=== PATIENT | male | born 1995 | race Caucasian/White ===

== ENCOUNTER 2017-12-15 08:26 | Emergency (ER) | payer OTHER ==
[2017-12-15 08:38] VITALS: BP 156/84; PULSE 71; TEMP 99.1; BMI 30.5
--- NOTE | 2017-12-15 08:39 | PDOC ---
History of Present Illness - General Chief Complaint: Urinary Problem Stated Complaint: PAIN Time Seen by Provider: 12/15/17 08:37 History Source: Patient Exam Limitations: No Limitations Past History - Travel Traveled outside of the country in the last 30 days: No Close contact w/someone who was outside of country & ill: No - Past Medical History Allergies/Adverse Reactions: Allergies Allergy/AdvReac Type Severity Reaction Status Date / Time No Known Allergies Allergy Verified 12/15/17 08:33 Home Medications: Ambulatory Orders NK [No Known Home Medication] 12/15/17 COPD: No - Immunization History Immunization Up to Date: Yes - Suicide/Smoking/Psychosocial Hx Smoking Status: No Smoking History: Never smoked Have you smoked in the past 12 months: No Number of Cigarettes Smoked Daily: 0 Cigars Per Day: 0 Information on smoking cessation initiated: No Hx Alcohol Use: No Drug/Substance Use Hx: No Substance Use Type: Alcohol Review of Systems - Review of Systems Able to Perform ROS?: Yes Comments:: 12/15/17 08:38 CONSTITUTIONAL: Absent: fever, chills, diaphoresis, generalized weakness, malaise, loss of appetite HEENT: Absent: rhinorrhea, nasal congestion, throat pain, throat swelling, difficulty swallowing, mouth swelling, ear pain, eye pain, visual Changes CARDIOVASCULAR: Absent: chest pain, loss of consciousness, palpitations, irregular heart rate, peripheral edema RESPIRATORY: Absent: cough, shortness of breath, dyspnea with exertion, orthopnea, wheezing, stridor, hemoptysis GASTROINTESTINAL: Absent: abdominal pain, abdominal distension, nausea, vomiting, diarrhea, constipation, melena, hematochezia GENITOURINARY: Absent: dysuria, frequency, urgency, hesitancy, hematuria, flank pain, genital pain MUSCULOSKELETAL: Absent: myalgia, arthralgia, joint swelling SKIN: Absent: rash, itching, pallor HEMATOLOGIC/IMMUNOLOGIC: Absent: easy bleeding, easy bruising, lymphadenopathy, frequent infections ENDOCRINE: Absent: unexplained weight gain, unexplained weight loss, heat intolerance, cold intolerance NEUROLOGIC: Absent: headache, focal weakness or paresthesias, dizziness, unsteady gait, seizure, mental status changes, bladder or bowel incontinence PSYCHIATRIC: Absent: anxiety, depression, suicidal or homicidal ideation, hallucinations. Is the patient limited Lithuanian proficient: No *Physical Exam - Vital Signs Last Vital Signs Temp Pulse Resp BP Pulse Ox 99.1 F 71 18 156/84 97 12/15/17 08:34 12/15/17 08:34 12/15/17 08:34 12/15/17 08:34 12/15/17 08:34 - Physical Exam Comments: 12/15/17 08:38 GENERAL: Well developed, well nourished. Awake and alert. No acute distress. HEENT: Normocephalic, atraumatic. PERRLA, EOMI. No conjunctival pallor. Sclera are non- icteric. Moist mucous membranes. Oropharynx is clear. NECK: Supple. Full ROM. No JVD. Carotid pulses 2+ and symmetric, without bruits. No thyromegaly. No lymphadenopathy. CARDIOVASCULAR: Regular rate and rhythm. No murmurs, rubs, or gallops. Distal pulses are 2+ and symmetric. PULMONARY: No evidence of respiratory distress. Lungs clear to auscultation bilaterally. No wheezing, rales or rhonchi. ABDOMINAL: Soft. Non-tender. Non-distended. No rebound or guarding. No organomegaly. Normoactive bowel sounds. MUSCULOSKELETAL Normal range of motion at all joints. No bony deformities or tenderness. No CVA tenderness. EXTREMITIES: No cyanosis. No clubbing. No edema. No calf tenderness. SKIN: Warm and dry. Normal capillary refill. No rashes. No jaundice. NEUROLOGICAL: Alert, awake, appropriate. Cranial nerves 2-12 intact. No deficits to light touch and temperature in face, upper extremities and lower extremities. No motor deficits in the in face, upper extremities and lower extremities. Normoreflexic in the upper and lower extremities. Normal speech. Toes are down- going bilaterally. Gait is normal without ataxia. PSYCHIATRIC: Cooperative. Good eye contact. Appropriate mood and affect. *DC/Admit/Observation/Transfer Diagnosis at time of Disposition: Exposure to STD - Discharge Dispostion Disposition: HOME Condition at time of disposition: Stable Decision to Admit order: No - Referrals Referrals: Ekta Lehman MD [Primary Care Provider] - - Patient Instructions Printed Discharge Instructions: Facts About Sexually Transmitted Infections Additional Instructions: Your urine and ultrasound were negative for infection today. You were treated prophylactically for gonorrhea and Chlamydia. You may receive the results of that testing next week. Please f/u with your primary care doctor this week. Return to emergency department if you have worsening pain, fevers, chills, or if you have any changes in her symptoms. - Post Discharge Activity
[2017-12-15 09:13] LABS: URINE APPEARANCE CLEAR; URINE BILIRUBIN NEGATIVE (<2.0 mg/dL); URINE COLOR YELLOW; URINE GLUCOSE (UA) NEGATIVE (NEGATIVE); URINE KETONE NEGATIVE (NEGATIVE); URINE LEUK ESTERASE NEGATIVE (NEGATIVE); URINE NITRITE NEGATIVE (NEGATIVE); URINE PROTEIN NEGATIVE (NEGATIVE); URINE UROBILINOGEN NEGATIVE mg/dL (0.2-1.0)
[2017-12-15] MEDS ORDERED: AZITHROMYCIN 500 MG TABLET PO ONE (09:15)
[2017-12-15] MEDS ORDERED: LIDOCAINE HCL/PF 1% SDV 5ML VIAL ONE (10:03)
[2017-12-15] MEDS ORDERED: AZITHROMYCIN 500 MG TABLET ONE (10:03)
== END 2017-12-15 11:07 | disposition home or self-care (01) ==
LOC: JER 08:26 → JERFT 08:26
DX: Z20.2 Contact with and (suspected) exposure to infections with a predominantly sexual mode of transmission (principal)
CPT/HCPCS: 36415; 76870-TC; 81003; 87086; 87491; 87591; 96372; 99281-25

== ENCOUNTER 2018-02-03 19:38 | Emergency (ER) | payer OTHER ==
[2018-02-03 19:55] VITALS: BP 129/72; PULSE 71; TEMP 98.5; BMI 29.4
[2018-02-03 20:30] LABS: URINE APPEARANCE CLEAR; URINE BILIRUBIN NEGATIVE (<2.0 mg/dL); URINE COLOR YELLOW; URINE GLUCOSE (UA) NEGATIVE (NEGATIVE); URINE KETONE TRACE (NEGATIVE); URINE LEUK ESTERASE 1+ (NEGATIVE); URINE NITRITE NEGATIVE (NEGATIVE); URINE PROTEIN NEGATIVE (NEGATIVE)
--- NOTE | 2018-02-03 20:32 | PDOC ---
History of Present Illness - General Chief Complaint: Urinary Problem Stated Complaint: URINARY PROBLEM Time Seen by Provider: 02/03/18 19:57 History Source: Patient - History of Present Illness Timing/Duration: reports: other Quality: reports: mild Past History - Past Medical History Allergies/Adverse Reactions: Allergies Allergy/AdvReac Type Severity Reaction Status Date / Time No Known Allergies Allergy Verified 02/03/18 19:52 Home Medications: Ambulatory Orders NK [No Known Home Medication] 12/15/17 COPD: No - Immunization History Immunization Up to Date: Yes - Suicide/Smoking/Psychosocial Hx Smoking Status: No Smoking History: Never smoked Have you smoked in the past 12 months: No Number of Cigarettes Smoked Daily: 0 Cigars Per Day: 0 Information on smoking cessation initiated: No Hx Alcohol Use: No Drug/Substance Use Hx: No Substance Use Type: Alcohol Review of Systems - Review of Systems Constitutional: No: Chills, Fever ABD/GI: No: Nausea, Vomiting, Abdominal cramping : Yes: Pain. No: Burning, Dysuria, Discharge, Frequency, Flank Pain, Hematuria, Testicular Mass, Testicular Swelling, Lesions *Physical Exam - Vital Signs Last Vital Signs Temp Pulse Resp BP Pulse Ox 98.5 F 71 16 129/72 97 02/03/18 19:52 02/03/18 19:52 02/03/18 19:52 02/03/18 19:52 02/03/18 19:52 - Physical Exam General Appearance: Yes: Appropriately Dressed. No: Apparent Distress HEENT: positive: Normal Voice Neck: positive: Supple Respiratory/Chest: negative: Respiratory Distress Male Genitalia: positive: normal genitalia. negative: discharge Integumentary: positive: Dry, Warm Neurologic: positive: Fully Oriented, Alert, Normal Mood/Affect Medical Decision Making - Medical Decision Making 02/03/18 20:03 22-year-old male, dx with chlamydia 2 months ago and treated in ED. States he has not been sexually active since then, but that he started having pain to "my urethra" several days ago. No penile discharge, dysuria, hematuria, testicular pain or swelling. Exam unremarkable. UA w/ 1+ LE. Cxs sent including genital cx r/o trichomonas 02/03/18 21:00 *DC/Admit/Observation/Transfer Diagnosis at time of Disposition: Urethral pain - Discharge Dispostion Disposition: HOME Condition at time of disposition: Good - Referrals Referrals: Janak Villasenor MD [Primary Care Provider] - - Patient Instructions Additional Instructions: We will call you in 2-3 days if results are positive. Otherwise you can call us at [phone] - Post Discharge Activity
[2018-02-03 20:33] LABS: URINE BACTERIA RARE /hpf (NONE SEEN); URINE MUCUS FEW
== END 2018-02-03 21:02 | disposition home or self-care (01) ==
LOC: JERFT 19:38
DX: N36.8 Other specified disorders of urethra (principal)
CPT/HCPCS: 36415; 81003; 81015; 87070; 87086; 87205; 87491; 87591; 99281-25

== ENCOUNTER 2018-03-17 17:59 | Emergency (ER) | payer SELFPAY ==
[2018-03-17 18:04] VITALS: BP 125/84; PULSE 76; TEMP 97.9; BMI 29.4
--- NOTE | 2018-03-17 18:30 | PDOC ---
History of Present Illness - General Chief Complaint: Urinary Problem Stated Complaint: URINARY PROBLEM Time Seen by Provider: 03/17/18 18:14 History Source: Patient Exam Limitations: No Limitations - History of Present Illness Initial Comments: CHIEF COMPLAINT: 22 y/o afebrile male c/o pain to his urethra. HISTORY OF PRESENT ILLNESS: He states he's had this pain in the past. He was seen here in december and january for same issue and was positive for chlamydia. He states he has not had unprotected sex since and he took all prescribed medication. Vital signs on arrival are within normal limits. REVIEW OF SYSTEMS: GENERAL/CONSTITUTIONAL: No fever/chills. No weakness. No weight change. GENITOURINARY: +dysuria. No frequency or hematuria. MUSCULOSKELETAL: No joint or muscle swelling or pain. No neck or back pain. SKIN: No rash or easy bruising. NEUROLOGIC: No headache, vertigo, loss of consciousness, or loss of sensation. PHYSICAL EXAM: GENERAL: The patient is awake, alert, and fully oriented, in no acute distress.. ABDOMEN: Soft, non-distended, non-tender even to deep palpation, no hepatomegaly or splenomegaly, no masses. EXTREMITIES: Normal range of motion, no edema. NEUROLOGICAL: Normal speech, normal gait. CN II-XII grossly intact. SKIN: Warm, dry, normal turgor, no rashes or lesions noted. Past History - Past Medical History Allergies/Adverse Reactions: Allergies Allergy/AdvReac Type Severity Reaction Status Date / Time No Known Allergies Allergy Verified 03/17/18 18:04 Home Medications: Ambulatory Orders Doxycycline Hyclate [Vibramycin -] 100 mg PO BID #14 cap 03/17/18 COPD: No - Immunization History Immunization Up to Date: Yes - Suicide/Smoking/Psychosocial Hx Smoking Status: No Smoking History: Never smoked Have you smoked in the past 12 months: No Number of Cigarettes Smoked Daily: 0 Cigars Per Day: 0 Hx Alcohol Use: No Drug/Substance Use Hx: No Substance Use Type: Alcohol *Physical Exam - Vital Signs Last Vital Signs Temp Pulse Resp BP Pulse Ox 97.9 F 76 18 125/84 100 03/17/18 18:02 03/17/18 18:02 03/17/18 18:02 03/17/18 18:02 03/17/18 18:02 Moderate Sedation - Procedure Monitoring Vital Signs: Procedure Monitoring Vital Signs Temperature 97.9 F 03/17/18 18:02 Pulse Rate 76 03/17/18 18:02 Respiratory Rate 18 03/17/18 18:02 Blood Pressure 125/84 03/17/18 18:02 O2 Sat by Pulse Oximetry (%) 100 03/17/18 18:02 Medical Decision Making - Medical Decision Making A/P: 22 y/o male with urethral pain that he states feels the same as the prior 2 times he had chlamydia. Will give IM ceftriaxone, PO azithro in the ER. Will send rx for doxy. WIll give urology referral. The patient verbalizes understanding of all instructions, has no further questions and is awaiting discharge. *DC/Admit/Observation/Transfer Diagnosis at time of Disposition: Urethral pain - Discharge Dispostion Condition at time of disposition: Good - Prescriptions Prescriptions: Doxycycline Hyclate [Vibramycin -] 100 mg PO BID #14 cap - Referrals Referrals: Janak Villasenor MD [Primary Care Provider] - Wili Marino MD [Staff Physician] - Call tomorrow - Patient Instructions Printed Discharge Instructions: DI for Urethritis Additional Instructions: Discharge Instructions: -You were treated in the ER for a Gonorrhea infection -A prescription has been sent to your pharmacy for medicine to treat chlamydia -Please do not have sex for 2 weeks -Please call Dr. William tomorrow to schedule follow up appointment as this issue has become recurrent and may need specialist evaluation. - Post Discharge Activity
[2018-03-17] MEDS ORDERED: AZITHROMYCIN 500 MG TABLET PO ONE (18:31)
[2018-03-17] MEDS ORDERED: AZITHROMYCIN 500 MG TABLET ONE (18:40)
[2018-03-17 18:52] LABS: URINE APPEARANCE CLEAR; URINE BILIRUBIN NEGATIVE (<2.0 mg/dL); URINE COLOR YELLOW; URINE GLUCOSE (UA) NEGATIVE (NEGATIVE); URINE KETONE NEGATIVE (NEGATIVE); URINE LEUK ESTERASE NEGATIVE (NEGATIVE); URINE NITRITE NEGATIVE (NEGATIVE); URINE PROTEIN NEGATIVE (NEGATIVE)
== END 2018-03-17 19:01 | disposition home or self-care (01) ==
LOC: JERFT 17:59
DX: N36.8 Other specified disorders of urethra (principal)
CPT/HCPCS: 36415; 81003; 87086; 87491; 87591; 99281-25